=== PATIENT | male | born 1985 | race Caucasian/White ===

== ENCOUNTER 2025-05-03 16:53 | Emergency (ER) | payer MEDICAID, SELFPAY ==
[2025-05-03 17:01] VITALS: BP 123/87; PULSE 74; RESP 18; TEMP 36.7; O2SAT 95
[2025-05-03] MEDS: clonazePAM 0.5 MG TABLET 2 MG PO (17:18)
--- NOTE | 2025-05-03 17:22 | PD.EDADULT ---
ED General RME/HPI General Chief complaint: General Adult/Misc Complain Stated complaint: panic attack (lost kolonopin 72 hours ago) Time Seen by Provider: 05/03/25 17:10 Arrival date/time: 05/03/25 16:53 40-year-old male with history of anxiety, panic attacks presents stating that he lost his Klonopin 72 hours ago patient questing a dose of Klonopin now reports he will follow-up with the specialist but just needs something for right now. Limitations: no limitations Related Data Home Medications ?Medication ?Instructions ?Recorded ?Confirmed clonazepam 2 mg tablet (Klonopin) 2 mg PO QDAY 09/09/19 09/09/19 escitalopram oxalate 10 mg tablet 10 mg PO QDAY 09/09/19 09/09/19 (Lexapro) lisinopril 20 1 tab PO QDAY 09/09/19 09/09/19 mg-hydrochlorothiazide 12.5 mg tablet lurasidone 20 mg tablet (Latuda) 20 mg PO QDAY 09/09/19 09/09/19 metoprolol succinate 50 mg capsule 50 mg PO QDAY 09/09/19 09/09/19 sprinkle, ext. release 24 hr Previous Rx's ?Medication ?Instructions ?Recorded lurasidone 40 mg tablet (Latuda) 40 mg PO QPM #7 tabs 06/13/24 clonazepam 2 mg tablet 2 mg PO QDAY 5 days #5 tabs 05/03/25 Allergies Allergy/AdvReac Type Severity Reaction Status Date / Time No Known Allergies Allergy Verified 05/03/25 16:56 Review of Systems Review of Systems Systems Reviewed: All systems reviewed, normal except as documented Constitutional Constitutional: Reports system reviewed and no additional complaints, except as documented, Denies fever(s) and Denies headache(s) Eyes Eyes: Reports system reviewed and no additional complaints, except as documented and Denies blurry vision ENT Ears, Nose, Mouth, and Throat: Reports system reviewed and no additional complaints, except as documented, Denies headache(s), Denies nasal congestion and Denies nasal discharge Cardiovascular Cardiovascular: Reports system reviewed and no additional complaints, except as documented, Denies chest pain and Denies dyspnea Respiratory Respiratory: Reports system reviewed and no additional complaints, except as documented, Denies chest congestion, Denies cough and Denies dyspnea Gastrointestinal Gastrointestinal: Reports system reviewed and no additional complaints, except as documented and Denies abdominal pain Integumentary/Breasts Skin/Breast: Reports system reviewed and no additional complaints, except as documented and Denies rash Neurologic Neurologic: Reports system reviewed and no additional complaints, except as documented, Reports as per HPI and Denies headache(s) Past Medical History Past Medical History CARDIAC: Negative Congestive Heart Failure RESPIRATORY: Negative Chronic Obstructive Pulmonary Disease (COPD) GENITOURINARY: Negative Renal Disease ENDOCRINE: Negative Diabetes Mellitus Type 1 or Diabetes Mellitus Type 2 Social History SMOKING STATUS: Never smoker ED Exam General Limitations: Present no limitations General appearance: Present alert and in no apparent distress Head Head exam: Present atraumatic Eye Eye exam: Present normal appearance, PERRL and EOMI ENT ENT exam: Present normal exam, normal oropharynx and mucous membranes moist Neck Neck exam: Present normal inspection, full ROM and trachea midline Chest Chest inspection: Present normal inspection and symmetric chest wall rise Respiratory Respiratory exam: Present normal lung sounds bilaterally Cardiovascular Cardiovascular exam: Present regular rate, normal rhythm and normal heart sounds Abdominal Exam Abdominal exam: Present soft and normal bowel sounds Extremities Exam Extremities exam: Present normal inspection and full ROM Back Exam Back exam: Present normal inspection and full ROM Neurological Exam Neurological exam: Present alert, oriented X3, CN II-XII intact, normal gait and reflexes normal; Absent motor sensory deficit Psychiatric Psychiatric exam: Present anxious; Absent depressed, agitated, flat affect, manic, homicidal ideation or suicidal ideation Skin Skin exam: Present warm, dry, intact and normal color Course Quality Measures none Orders Category Date Time Status clonazePAM [KlonoPIN] Med 05/03/25 17:13 Discontinued 2 mg PO X1 ONE Vital Signs Vital signs: Vital Signs Temperature 98.1 F 05/03/25 17:01 Pulse Rate 74 05/03/25 17:01 Respiratory Rate 18 05/03/25 17:01 Blood Pressure 123/87 H 05/03/25 17:01 Pulse Oximetry (%) 95 05/03/25 17:01 Oxygen Delivery Method Room Air 05/03/25 17:01 O2 saturation 95% room air wnl Discharge Plan Plan Patient Disposition: HOME (Self Care) Discharge Disposition comment: Stable Prescriptions/Referrals Prescriptions/Med Rec: New clonazepam 2 mg tablet 2 mg PO QDAY 5 Days Qty: 5 0RF No Action metoprolol succinate 50 mg capsule,sprinkle,ER 24hr 50 mg PO QDAY lisinopril-hydrochlorothiazide 20-12.5 mg tablet 1 tab PO QDAY clonazepam [Klonopin] 2 mg tablet 2 mg PO QDAY Latuda 20 mg tablet 20 mg PO QDAY escitalopram oxalate [Lexapro] 10 mg tablet 10 mg PO QDAY lurasidone [Latuda] 40 mg tablet 40 mg PO QPM Qty: 7 0RF Rx Instructions: must administer with food (at least 350 calories) Problem List Clinical Impression: Anxiety, Medication refill Patient/Caregiver Discharge Instructions Education Materials: ED Anxiety Reaction Additional Instructions: Please follow up with your primary care doctor in the next 24-48hrs for any worsening symptoms return here immediately Print Language: Panamanian Stand Alone Forms: Nata Award Info., Patient Portal Info Letter 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 On exam patient well-appearing patient does not appear ill or toxic in no acute distress Patient given a single dose of Klonopin here and discharged home with a short course of Klonopin Patient discharged home in no distress to follow-up with primary care doctor in the next 24 to 48 hours and for any worsening symptoms to return to the ER immediately Clinical Information Provided by patient Medical Records Reviewed [facility] Meds/Rx Considered, not Ordered Describe details: Given Labs/Rad/Tests considered, not Ordered None Chronic Illness/Social Conditions which may negatively complicate care or outcome(s)-explain: None or not applicable EKG EKG not done Lab Interpretation Labs: none Imaging Imaging interpretation: none Medication Administration(s) none Medication Administration History Discontinued Medications Clonazepam (Clonazepam 0.5 Mg Tablet) 2 mg PO X1 ONE Stop: 05/03/25 17:14 Last Admin: 05/03/25 17:18 Dose: 2 mg Documented By: KRISTIN Given Diagnosis Differential diagnosis: Psychiatric disorder, bipolar, schizophrenia Dispositon Disposition: Discharge Home
== END 2025-05-03 17:24 | disposition home or self-care (01) ==
LOC: SERX 17:15
PROVIDERS: Emergency Provider Emergency Medicine; PCP Nurse Practitioner Family
DX: F41.9 Anxiety disorder, unspecified (principal); Z76.0 Encounter for issue of repeat prescription
CPT/HCPCS: 99282; A9270

== ENCOUNTER 2025-06-11 09:58 | Emergency (ER) | payer MEDICAID, SELFPAY ==
--- NOTE | 2025-06-11 10:15 | PC.NURSE ---
PT CALLED BACK TO E AT 1014 X1. NO RESPONSE FROM OUTSIDE OR FROM LOBBY.
[2025-06-11 10:33] VITALS: BP 136/87; PULSE 87; RESP 18; TEMP 36.4; O2SAT 95; BMI 35.4
--- NOTE | 2025-06-11 10:48 | PD.EDANKLE ---
Lower Extremity Injury RME/HPI General Chief Complaint: General Adult/Misc Complain Stated Complaint: 4TH DAY CLONAZEPAM WITHDRAWL Time Seen by Provider: 06/11/25 10:01 Arrival date/time: 06/11/25 09:58 This is a 40-year-old male that comes into the emergency room with complaints of no clonazepam for the last 4 days. Patient states that his insurance ran out. Patient has not been able to see his doctor. Patient was paying [facility] to see his doctor to get his prescriptions but not able to make a follow-up appointment with them. Patient also has some redness to his right lower extremities. Patient has a long history of anxiety Related Data Home Medications ?Medication ?Instructions ?Recorded ?Confirmed clonazepam 2 mg tablet (Klonopin) 2 mg PO QDAY 09/09/19 09/09/19 escitalopram oxalate 10 mg tablet 10 mg PO QDAY 09/09/19 09/09/19 (Lexapro) lisinopril 20 1 tab PO QDAY 09/09/19 09/09/19 mg-hydrochlorothiazide 12.5 mg tablet lurasidone 20 mg tablet (Latuda) 20 mg PO QDAY 09/09/19 09/09/19 metoprolol succinate 50 mg capsule 50 mg PO QDAY 09/09/19 09/09/19 sprinkle, ext. release 24 hr Previous Rx's ?Medication ?Instructions ?Recorded lurasidone 40 mg tablet (Latuda) 40 mg PO QPM #7 tabs 06/13/24 clonazepam 2 mg tablet 2 mg PO QDAY #7 tabs 06/13/25 clonazepam 1 mg tablet (Klonopin) 1 mg PO QDAY PRN anxiety #14 tabs 06/23/25 Allergies Allergy/AdvReac Type Severity Reaction Status Date / Time No Known Allergies Allergy Verified 06/23/25 17:41 Review of Systems Review of Systems Systems Reviewed: All systems reviewed, normal except as documented Past Medical History Past Medical History CARDIAC: Negative Congestive Heart Failure RESPIRATORY: Negative Chronic Obstructive Pulmonary Disease (COPD) GENITOURINARY: Negative Renal Disease ENDOCRINE: Negative Diabetes Mellitus Type 1 or Diabetes Mellitus Type 2 Social History SMOKING STATUS: Never smoker ED Exam Narrative Physical exam: VITAL SIGNS: Reviewed. GENERAL APPEARANCE: Alert and interactive, follows commands, no acute distress HEAD AND FACE: Non-traumatic. ENT: PERRL, conjuctiva pink and clear, eyelid no trauma, Mucous membrane moist. NECK: Supple, nontender, no nuchal rigidity. CHEST: No tenderness, no crepitus, no paradoxical movement, no retractions. LUNGS: breathing even and unlabored HEART: Regular rate, cap refill less than 2 seconds ABDOMEN: Soft, nondistended, no guarding, nontender, no rebound, no masses, NEUROLOGICAL: Gross motor function intact sensory function intact, Appropriate for age. MUSCULOSKELETAL: low back nontender, full range of motion. EXTREMITIES: No redness no swelling no skin breakdown on bilateral foot and leg. Distal neurovascular status intact bilateral foot SKIN: Color pink, dry, bronzing to his lower extremities that is consistent likely venous stasis. His right lower extremity has some erythema and induration to the lower part of his leg. Course Quality Measures none Orders Category Date Time Status cephALEXin [Keflex] Med 06/11/25 10:49 Discontinued 500 mg PO X1 ONE clonazePAM [KlonoPIN] Med 06/11/25 10:49 Discontinued 2 mg PO X1 ONE Vital Signs Vital signs: Vital Signs Temperature 97.6 F 06/11/25 10:33 Pulse Rate 87 06/11/25 10:33 Respiratory Rate 18 06/11/25 10:33 Blood Pressure 136/87 H 06/11/25 10:33 Pulse Oximetry (%) 95 06/11/25 10:33 Oxygen Delivery Method Room Air 06/11/25 10:33 Extremity Injury, Lower MDM Narrative MDM Narrative:: I spoke to patient at length. Patient does have history of anxiety depression and is getting Remeron for this. Patient states that he is going to try next week to see his primary doctor to get a refill on his clonazepam. I let patient know that I cannot give him a prescription of clonazepam that this will have to be done by his primary doctor. However I will give him a dose of clonazepam here. I told patient to make sure he follows up with his primary provider in 1 to 2 days. Patient has some chronic bronzing to his lower extremities that is consistent with venous stasis. His right lower extremity has some erythema and induration to the lower part of his leg. This can be an early cellulitis. Will treat. Patient told to follow-up with primary provider in 1 to 2 days. Come back to the emergency room if symptoms change or worsen. Patient data External records reviewed:: [facility] previous records Clinical information provided by:: patient Social determinants that could affect healthcare access:: none Patient has the following chronic illnesses:: see hpi How is presenting disease/condition affected by chronic disease/condition?: no chronic disease Evaluation data The following diagnostics were reviewed and interpreted by me:: other (specify) (none ) Lab and/or radiology exams considered but not ordered:: none Interpretation Summary: see note Medications / Prescriptions Medications or Prescriptions considered but not ordered:: none Medication administrations:: Medication Administration History Discontinued Medications Cephalexin HCl (Cephalexin 250 Mg Capsule) 500 mg PO X1 ONE Stop: 06/11/25 10:50 Last Admin: 06/11/25 11:09 Dose: 500 mg Documented By: Clonazepam (Clonazepam 0.5 Mg Tablet) 2 mg PO X1 ONE Stop: 06/11/25 10:50 Last Admin: 06/11/25 11:09 Dose: 2 mg Documented By: see mar Consultations Consultation(s) initiated? (list below): No Diagnosis Most likely diagnosis given after review of the tests above:: medication withdrawal and celliulitis Admission Indicated Admission indicated?: not indicated Admission Request Was there a request for admission?: No Disposition Plan Disposition Plan: Discharge Discharge Attestation Discharge Attestation: The patient and all family members were given an opportunity to ask questions and understood the discharge instructions. Discharge instructions specifically effects, indications for sooner follow up or return to the emergency department, and the expected course of current diagnosis. Patient condition: Stable Discharge Plan Plan Patient Disposition: HOME (Self Care) Patient condition on transfer: Stable Prescriptions/Referrals Prescriptions/Med Rec: No Action metoprolol succinate 50 mg capsule,raúl,ER 24hr 50 mg PO QDAY lisinopril-hydrochlorothiazide 20-12.5 mg tablet 1 tab PO QDAY clonazepam [Klonopin] 2 mg tablet 2 mg PO QDAY Latuda 20 mg tablet 20 mg PO QDAY escitalopram oxalate [Lexapro] 10 mg tablet 10 mg PO QDAY lurasidone [Latuda] 40 mg tablet 40 mg PO QPM Qty: 7 0RF Rx Instructions: must administer with food (at least 350 calories) clonazepam [Klonopin] 1 mg tablet 1 mg PO QDAY PRN (Reason: anxiety) Qty: 14 0RF clonazepam 2 mg tablet 2 mg PO QDAY Qty: 7 0RF Problem List Clinical Impression: Cellulitis, Anxiety Patient/Caregiver Discharge Instructions Discharge Activity: activity as tolerated Education Materials: ED Anxiety Reaction, ED Cellulitis Additional Instructions: Follow up with primary provider in 1-2 days. Come back to ED if symptoms change or worsen Print Language: Maori Stand Alone Forms: Nata Award Info., Patient Portal Info Letter PA/ONLINE PROJECT MANAGER Supervising Physician PA/ONLINE PROJECT MANAGER Supervising Physician: rafy
== END 2025-06-11 11:27 | disposition home or self-care (01) ==
PROVIDERS: Emergency Provider Nurse Practitioner Family; PCP Family Medicine
DX: L03.115 Cellulitis of right lower limb (principal); F41.9 Anxiety disorder, unspecified
CPT/HCPCS: 99283; A9270

== ENCOUNTER 2025-06-13 18:04 | Emergency (ER) | payer MEDICAID, SELFPAY ==
[2025-06-13 18:05] VITALS: BMI 34.4
[2025-06-13 18:57] VITALS: BP 132/85; PULSE 78; RESP 18; TEMP 36.7; O2SAT 97
--- NOTE | 2025-06-13 19:08 | PD.EDRECHK ---
ED Recheck Abnl Lab Rx-RME/HPI General Chief Complaint: General Adult/Misc Complain Stated Complaint: CLONOPINE WITHDRAWL Time Seen by Provider: 06/13/25 19:06 Arrival date/time: 06/13/25 18:04 40M with history of psych and HTN presents to ED needing clonazepam refill due to withdrawal symptoms. Patient is in-between appointments. His next one is one 1 week from today. Patient has been on 2 mg QD for the past 10 years. Patient denies HI/SI. Limitations: no limitations Related Data Home Medications ?Medication ?Instructions ?Recorded ?Confirmed clonazepam 2 mg tablet (Klonopin) 2 mg PO QDAY 09/09/19 09/09/19 escitalopram oxalate 10 mg tablet 10 mg PO QDAY 09/09/19 09/09/19 (Lexapro) lisinopril 20 1 tab PO QDAY 09/09/19 09/09/19 mg-hydrochlorothiazide 12.5 mg tablet lurasidone 20 mg tablet (Latuda) 20 mg PO QDAY 09/09/19 09/09/19 metoprolol succinate 50 mg capsule 50 mg PO QDAY 09/09/19 09/09/19 sprinkle, ext. release 24 hr Previous Rx's ?Medication ?Instructions ?Recorded lurasidone 40 mg tablet (Latuda) 40 mg PO QPM #7 tabs 06/13/24 cephalexin 500 mg capsule 500 mg PO QID 7 days #28 caps 06/11/25 clonazepam 2 mg tablet 2 mg PO QDAY #7 tabs 06/13/25 Allergies Allergy/AdvReac Type Severity Reaction Status Date / Time No Known Allergies Allergy Verified 06/13/25 18:06 Review of Systems Review of Systems Systems Reviewed: All systems reviewed, normal except as documented Constitutional Constitutional: Reports system reviewed and no additional complaints, except as documented, Denies fever(s) and Denies headache(s) ENT Ears, Nose, Mouth, and Throat: Denies disequilibrium and Denies headache(s) Cardiovascular Cardiovascular: Reports system reviewed and no additional complaints, except as documented, Denies chest pain and Denies dyspnea Respiratory Respiratory: Reports system reviewed and no additional complaints, except as documented, Denies cough and Denies dyspnea Gastrointestinal Gastrointestinal: Reports system reviewed and no additional complaints, except as documented, Denies abdominal pain, Denies nausea and Denies vomiting Neurologic Neurologic: Reports system reviewed and no additional complaints, except as documented, Denies confusion, Denies disequilibrium and Denies headache(s) Psychiatric Psychiatric: Denies confusion Past Medical History Past Medical History CARDIAC: Negative Congestive Heart Failure RESPIRATORY: Negative Chronic Obstructive Pulmonary Disease (COPD) GENITOURINARY: Negative Renal Disease ENDOCRINE: Negative Diabetes Mellitus Type 1 or Diabetes Mellitus Type 2 Social History SMOKING STATUS: Never smoker ED Exam General Limitations: Present no limitations General appearance: Present alert and in no apparent distress Head Head exam: Present atraumatic Eye Eye exam: Present normal appearance, PERRL and EOMI ENT ENT exam: Present normal exam, normal oropharynx and mucous membranes moist Neck Neck exam: Present normal inspection, full ROM and trachea midline Chest Chest inspection: Present normal inspection and symmetric chest wall rise Respiratory Respiratory exam: Present normal lung sounds bilaterally Cardiovascular Cardiovascular exam: Present regular rate, normal rhythm and normal heart sounds Abdominal Exam Abdominal exam: Present soft and normal bowel sounds Extremities Exam Extremities exam: Present normal inspection and full ROM Back Exam Back exam: Present normal inspection and full ROM Neurological Exam Neurological exam: Present alert, oriented X3 and CN II-XII intact Psychiatric Psychiatric exam: Present normal affect and normal mood Skin Skin exam: Present warm, dry, intact and normal color Course Quality Measures none Orders Category Date Time Status clonazePAM [KlonoPIN] Med 06/13/25 19:07 Discontinued 2 mg PO X1 ONE Vital Signs Vital signs: Vital Signs Temperature 98.1 F 06/13/25 18:57 Pulse Rate 78 06/13/25 18:57 Respiratory Rate 18 06/13/25 18:57 Blood Pressure 132/85 H 06/13/25 18:57 Pulse Oximetry (%) 97 06/13/25 18:57 Oxygen Delivery Method Room Air 06/13/25 18:57 O2 at 97% on RA and WNLs Recheck / Abnormal Lab / Rx MDM Narrative MDM Narrative:: 40M with history of psych and HTN presents to ED needing clonazepam refill due to withdrawal symptoms. Patient is in-between appointments. His next one is one 1 week from today. Patient has been on 2 mg QD for the past 10 years. Patient denies HI/SI. Physical exam reveals well-appearing male. Patient is afebrile, calm, and alert. Meds and residential youth counselor given. Patient data External records reviewed:: [facility] previous records Clinical information provided by:: patient Social determinants that could affect healthcare access:: mental health Patient has the following chronic illnesses:: psych and HTN How is presenting disease/condition affected by chronic disease/condition?: caused by Evaluation data The following diagnostics were reviewed and interpreted by me:: other (specify) (none) Lab and/or radiology exams considered but not ordered:: not ordered Interpretation Summary: n/a Medications / Prescriptions Medications or Prescriptions considered but not ordered:: ordered Medication administrations:: Medication Administration History Discontinued Medications Clonazepam (Clonazepam 0.5 Mg Tablet) 2 mg PO X1 ONE Stop: 06/13/25 19:08 above Consultations Consultation(s) initiated? (list below): No Diagnosis Recheck Differential Diagnosis: encounter for medication refill, encounter for wound recheck, encounter for recheck of burn, encounter for removal of sutures and warfarin-induced coagulopathy Most likely diagnosis given after review of the tests above:: encounter for medication refill Admission Indicated Admission indicated?: not indicated Admission Request Was there a request for admission?: No Disposition Plan Disposition Plan: Discharge Discharge Attestation Discharge Attestation: The patient and all family members were given an opportunity to ask questions and understood the discharge instructions. Discharge instructions specifically effects, indications for sooner follow up or return to the emergency department, and the expected course of current diagnosis. Patient condition: Stable Discharge Plan Plan Patient Disposition: HOME (Self Care) Discharge Disposition comment: Stable Prescriptions/Referrals Prescriptions/Med Rec: New clonazepam 2 mg tablet 2 mg PO QDAY Qty: 7 0RF No Action metoprolol succinate 50 mg capsule,sprinkle,ER 24hr 50 mg PO QDAY lisinopril-hydrochlorothiazide 20-12.5 mg tablet 1 tab PO QDAY clonazepam [Klonopin] 2 mg tablet 2 mg PO QDAY Latuda 20 mg tablet 20 mg PO QDAY escitalopram oxalate [Lexapro] 10 mg tablet 10 mg PO QDAY lurasidone [Latuda] 40 mg tablet 40 mg PO QPM Qty: 7 0RF Rx Instructions: must administer with food (at least 350 calories) cephalexin 500 mg capsule 500 mg PO QID 7 Days Qty: 28 0RF Problem List Clinical Impression: Encounter for medication refill Patient/Caregiver Discharge Instructions Additional Instructions: Please follow-up with PCP within 24-48 hours and return immediately if symptoms worsen. 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 Cline
== END 2025-06-13 19:22 | disposition home or self-care (01) ==
LOC: SERX 19:14
PROVIDERS: Emergency Provider Emergency Medicine; PCP Nurse Practitioner Family
DX: Z76.0 Encounter for issue of repeat prescription (principal); I10 Essential (primary) hypertension
CPT/HCPCS: 99283; A9270

== ENCOUNTER 2025-06-23 17:37 | Emergency (ER) | payer MEDICAID, SELFPAY ==
[2025-06-23 17:44] VITALS: BP 137/87; PULSE 80; RESP 18; TEMP 36.5; O2SAT 96; BMI 35.5
--- NOTE | 2025-06-23 18:01 | PD.EDADULT ---
ED General RME/HPI General Chief complaint: General Adult/Misc Complain Stated complaint: needs Klonopin in between M.D.'s Time Seen by Provider: 06/23/25 17:51 Arrival date/time: 06/23/25 17:37 RME / HPI RME / HPI narrative: 40-year-old male patient with significant history of hypertension, anxiety, taking clonazepam, 1 mg daily, came in for evaluation regarding anxiety like symptoms. Patient told me that the last time he took clonazepam was 2 days ago. No he felt very anxious. Patient told me that he had problem with insurance that is why he ran out of clonazepam. Patient denies any homicidal suicidal ideation patient is ambulatory. Related Data Home Medications ?Medication ?Instructions ?Recorded ?Confirmed clonazepam 2 mg tablet (Klonopin) 2 mg PO QDAY 09/09/19 09/09/19 escitalopram oxalate 10 mg tablet 10 mg PO QDAY 09/09/19 09/09/19 (Lexapro) lisinopril 20 1 tab PO QDAY 09/09/19 09/09/19 mg-hydrochlorothiazide 12.5 mg tablet lurasidone 20 mg tablet (Latuda) 20 mg PO QDAY 09/09/19 09/09/19 metoprolol succinate 50 mg capsule 50 mg PO QDAY 09/09/19 09/09/19 sprinkle, ext. release 24 hr Previous Rx's ?Medication ?Instructions ?Recorded lurasidone 40 mg tablet (Latuda) 40 mg PO QPM #7 tabs 06/13/24 clonazepam 2 mg tablet 2 mg PO QDAY #7 tabs 06/13/25 clonazepam 1 mg tablet (Klonopin) 1 mg PO QDAY PRN anxiety #14 tabs 06/23/25 Allergies Allergy/AdvReac Type Severity Reaction Status Date / Time No Known Allergies Allergy Verified 06/23/25 17:41 Review of Systems Review of Systems Narrative Review of Systems: Review of system reviewed and within normal limits except mentioned in HPI ED Exam Narrative Physical exam: VITAL SIGNS: Reviewed. GENERAL APPEARANCE: Alert and interactive, follows commands, no acute distress, anxious HEAD AND FACE: Non-traumatic. ENT: PERRL, pink conjunctivitis, eyelid no trauma, Mucous membrane moist. NECK: Supple, nontender, no nuchal rigidity. CHEST: No tenderness, no crepitus, no paradoxical movement, no retractions. LUNGS: Clear, well ventilated, symmetric, no rales, no wheezing, no ronchi, no stridor, good breath sounds bilaterally. HEART: Regular rate, regular rhythm, no murmur, no gallops. ABDOMEN: Soft, positive bowel sounds, nondistended, no guarding, nontender, no rebound, no masses, RECTAL: Deferred. GENITAL: Deferred. NEUROLOGICAL: Gross motor function intact sensory function intact, Appropriate for age. MUSCULOSKELETAL: low back nontender, full range of motion. EXTREMITIES: Nontender, full range of motion. SKIN: Color pink, dry, no rash, no lacerations, no abrasions, no contusions. LYMPHATICS: Deferred. Course Quality Measures none Orders Category Date Time Status clonazePAM [KlonoPIN] Med 06/23/25 18:00 Once 1 mg PO X1 ONE Vital Signs Vital signs: Vital Signs Temperature 97.7 F 06/23/25 17:44 Pulse Rate 80 06/23/25 17:44 Respiratory Rate 18 06/23/25 17:44 Blood Pressure 137/87 H 06/23/25 17:44 Pulse Oximetry (%) 96 06/23/25 17:44 Oxygen Delivery Method Room Air 06/23/25 17:44 Discharge Plan Plan Patient Disposition: HOME (Self Care) Prescriptions/Referrals Prescriptions/Med Rec: New clonazepam [Klonopin] 1 mg tablet 1 mg PO QDAY PRN (Reason: anxiety) Qty: 14 0RF No Action metoprolol succinate 50 mg capsule,sprinkle,ER 24hr 50 mg PO QDAY lisinopril-hydrochlorothiazide 20-12.5 mg tablet 1 tab PO QDAY clonazepam [Klonopin] 2 mg tablet 2 mg PO QDAY Latuda 20 mg tablet 20 mg PO QDAY escitalopram oxalate [Lexapro] 10 mg tablet 10 mg PO QDAY lurasidone [Latuda] 40 mg tablet 40 mg PO QPM Qty: 7 0RF Rx Instructions: must administer with food (at least 350 calories) clonazepam 2 mg tablet 2 mg PO QDAY Qty: 7 0RF Problem List Clinical Impression: Anxiety Patient/Caregiver Discharge Instructions Discharge Activity: activity as tolerated Education Materials: ED Anxiety Reaction Additional Instructions: Thank you for the opportunity for serving you today. You are stable for discharged . You are advised to: Follow-up with your PCP in 1 to 2 days Return to ED for worsening of symptoms Increase oral fluids Take medication as prescribed Print Language: Uzbek Stand Alone Forms: N[employer] Award Info., Patient Portal Info Letter BISHNU/SHAYNA Supervising Physician NAHOMY Supervising Physician: MD Bharath [facility] Narrative [facility] hospital course: 40-year-old male patient with significant history of hypertension, anxiety, taking clonazepam, 1 mg daily, came in for evaluation regarding anxiety like symptoms. Patient told me that the last time he took clonazepam was 2 days ago. No he felt very anxious. Patient told me that he had problem with insurance that is why he ran out of clonazepam. Patient denies any homicidal suicidal ideation patient is ambulatory. Workup for imaging is not needed at this time. Patient received clonazepam 1 mg p.o. x 1 with significant improvement of symptoms. Patient will be prescribed clonazepam 1 mg times 10 tablets. Chronic Illness/Social Conditions Add or document further as needed: Hypertension anxiety Lab Interpretation Lab(s) interpretation(s): None Medication Administration(s) Medication Administration History Clonazepam (Clonazepam 0.5 Mg Tablet) 1 mg PO X1 ONE Stop: 06/23/25 18:01 Clonazepam Diagnosis Differential diagnosis: Anxiety, benzo withdrawal, panic attack Most likely dx, and/or detailed dx discussion: Although pt's initial presentation was concerning, Pt now reports feeling better after Ativan and has an unremarkable vital signs. Stable for D/C. Hydroxyzine given as needed Dispositon Disposition: Discharge Home
== END 2025-06-23 18:51 | disposition home or self-care (01) ==
PROVIDERS: Emergency Provider Emergency Medicine
DX: F41.9 Anxiety disorder, unspecified (principal)
CPT/HCPCS: 99282; A9270

== ENCOUNTER 2025-07-06 18:55 | Emergency (ER) | payer BC, SELFPAY ==
[2025-07-06 19:34] VITALS: BP 111/81; PULSE 78; RESP 20; TEMP 36.9; O2SAT 96; BMI 34.5
--- NOTE | 2025-07-06 19:41 | EDNOTE_ITS ---
ED Anxiety RME/HPI General Chief Complaint: General Adult/Misc Complain Stated Complaint: needs Klonopin dose Time Seen by Provider: 07/06/25 19:30 Arrival date/time: 07/06/25 18:55 RME / HPI RME / HPI narrative: This section includes all my notes and documentations, including HPI, PE, and ED course. Coy Cline MD HPI: 40 y/o male with Hx of Anxiety presents with anxiety and shaking after not having his medication for several days. Patient has been taking Klonopin daily to manage his anxiety for the last decade, but recently ran out of his medication, several days ago. No other complaints. ROS: All negative except as documented in HPI. Physical Exam: General: Alert and oriented. Appears very anxious. Eyes: Conjunctivae and lids clear. ENT: No nasal congestion. Neck: Supple. Heart: RRR. Lungs: No respiratory distress. Good air movement. No rhonchi, wheezing, rales. Skin: Warm and dry. Neuro: Alert and oriented X 3. At this point, diagnoses include: Anxiety. Treatment here included: Klonopin 2 mg. Recommended outpatient care. Based on my best medical judgment, made decision no further evaluation or treatment indicated at this time. Patient understands and agrees to the discharge instructions customized and printed, see below. Discharge Instructions from Dr. Cline printed for you: 1. To prevent severe benzodiazepine withdrawal, you were given Klonopin 2 mg here and a prescription for 48 hours. 2. See a private doctor on 07/07/2025 as scheduled. Ask to help slowly wean off of Klonopin without withdrawal. And help finding other ways of helping her anxiety. 3. Seek immediate medical care with worsening or with any concerns. Coy Cline MD Related Data Home Medications ?Medication ?Instructions ?Recorded ?Confirmed clonazepam 2 mg tablet (Klonopin) 2 mg PO QDAY 9 09/09/19 escitalopram oxalate 10 mg tablet 10 mg PO QDAY 09/09/19 (Lexapro) lisinopril 20 1 tab PO QDAY 09/09/1909/09 mg-hydrochlorothiazide 12.5 mg tablet lurasidone 20 mg tablet (Latuda) 20 mg PO QDAY 9 09/09/19 metoprolol succinate 50 mg capsule 50 mg PO QDAY 09/0909/09/19 sprinkle, ext. release 24 hr Previous Rx's ?Medication ?Instructions ?Recorded lurasidone 40 mg tablet (Latuda) 40 mg PO QPM #7 tabs 06/13/24 clonazepam 2 mg tablet 2 mg PO QDAY #7 tabs 5 clonazepam 1 mg tablet (Klonopin) 1 mg PO QDAY PRN anx iety #14 tabs 06/23/25 clonazepam 1 mg tablet (Klonopin) 1 mg PO BID PRN anxi ety #4 tabs 07/06/25 Allergies Allergy/AdvReac Type Severity Reaction Status Date / Time No Known Allergies Allergy Verified 07/06/25 18:58 Review of Systems Review of Systems Systems Reviewed: All systems reviewed, normal except as documented Past Medical History Past Medical History PSYCHO/SOCIAL: Positive Anxiety ED Exam Narrative Physical exam: Refer to [facility] Course Quality Measures none Orders Category Date Time Status clonazePAM [KlonoPIN] Med 07/06/25 19:27 Discontinued 2 mg PO X1 ONE Vital Signs Vital signs: Vital Signs Temperature 98.5 F 07/06/25 19:34 Pulse Rate 78 07/06/25 19:34 Respiratory Rate 20 07/06/25 19:34 Blood Pressure 111/81 07/06/25 19:34 Pulse Oximetry (%) 96 07/06/25 19:34 Oxygen Delivery Method Room Air 07/06/25 19:34 Anxiety MDM Narrative MDM Narrative: Scribe Attestation: Annabel Oliveira am scribing for and in the presence of Dr. Cline. Provider Notation: Although this document has been carefully reviewed, there may still be some phonetic and other typographical errors.? These errors are purely grammatical due to imperfections in the software program and should not be construed in any way to? compromise the substance of the patient's medical care during this visit. 40 y/o male with Hx of Anxiety presents with anxiety and shaking after not having his medication for several days. Patient has been taking Klonopin daily to manage his anxiety for the last decade, but recently ran out of his medication, several days ago. No other complaints. Patient data External records reviewed:: [facility] previous records (Reviewed prior ED records from 06/23/25. Patient was seen for Anxiety.) Clinical information provided by:: patient Social determinants that could affect healthcare access:: mental health (Anxiety) Patient has the following chronic illnesses:: Anxiety How is presenting disease/condition affected by chronic disease/condition?: exacerbated by Evaluation data The following diagnostics were reviewed and interpreted by me:: other (specify) (N/A) Lab and/or radiology exams considered but not ordered:: None Interpretation Summary: N/A Medications / Prescriptions Medications or Prescriptions considered but not ordered:: None Medication administrations:: Medication Administration History Discontinued Medications Clonazepam (Clonazepam 0.5 Mg Tablet) 2 mg PO X1 ONE Stop: 07/06/25 19:28 Last Admin: 07/06/25 19:40 Dose: 2 mg Documented By: EE Consultations Consultation(s) initiated? (list below): No Diagnosis Differential diagnosis anxiety: hyperventilation, panic disorder and acute anxiety Most likely diagnosis given after review of the tests above:: Anxiety Admission Indicated Admission indicated?: not indicated Explain why admission is indicated or not indicated:: With significant improvement and no condition needing emergent intervention, there was no indication for admission. Admission Request Was there a request for admission?: No Disposition Plan Disposition Plan: Discharge Discharge Attestation Discharge Attestation: The patient and all family members were given an opportunity to ask questions and understood the discharge instructions. Discharge instructions specifically effects, indications for sooner follow up or return to the emergency department, and the expected course of current diagnosis. Patient condition: Stable Discharge Plan Plan Patient Disposition: HOME (Self Care) Prescriptions/Referrals Prescriptions/Med Rec: New clonazepam [Klonopin] 1 mg tablet 1 mg PO BID PRN (Reason: anxiety) Qty: 4 0RF No Action metoprolol succinate 50 mg capsule,sprinkle,ER 24hr 50 mg PO QDAY lisinopril-hydrochlorothiazide 20-12.5 mg tablet 1 tab PO QDAY clonazepam [Klonopin] 2 mg tablet 2 mg PO QDAY Latuda 20 mg tablet 20 mg PO QDAY escitalopram oxalate [Lexapro] 10 mg tablet 10 mg PO QDAY lurasidone [Latuda] 40 mg tablet 40 mg PO QPM Qty: 7 0RF Rx Instructions: must administer with food (at least 350 calories) clonazepam [Klonopin] 1 mg tablet 1 mg PO QDAY PRN (Reason: anxiety) Qty: 14 0RF clonazepam 2 mg tablet 2 mg PO QDAY Qty: 7 0RF Problem List Clinical Impression: Anxiety Patient/Caregiver Discharge Instructions Discharge Activity: activity as tolerated Education Materials: ED Anxiety Reaction Additional Instructions: Discharge Instructions from Dr. Cline printed for you: 1. To prevent severe benzodiazepine withdrawal, you were given Klonopin 2 mg here and a prescription for 48 hours. 2. See a private doctor on 07/07/2025 as scheduled. Ask to help slowly wean off of Klonopin without withdrawal. And help finding other ways of helping her anxiety. 3. Seek immediate medical care with worsening or with any concerns. Print Language: Yoruba Stand Alone Forms: [employer] Award Info., Patient Portal Info Letter
== END 2025-07-06 19:43 | disposition home or self-care (01) ==
LOC: SERX 19:47
PROVIDERS: Emergency Provider Emergency Medicine
DX: F41.9 Anxiety disorder, unspecified (principal)
CPT/HCPCS: 99282; A9270

== ENCOUNTER 2025-07-11 15:48 | Emergency (ER) | payer MEDICAID, SELFPAY ==
[2025-07-11 15:48] VITALS: BMI 34.5
[2025-07-11 16:05] VITALS: BP 145/100; PULSE 101; RESP 20; TEMP 36.9; O2SAT 95
--- NOTE | 2025-07-11 16:08 | PD.EDADULT ---
ED General RME/HPI General Chief complaint: General Adult/Misc Complain Stated complaint: BENZO WITHDRAWL Time Seen by Provider: 07/11/25 16:08 Arrival date/time: 07/11/25 15:48 40-year-old male presents emergency department today stating that he ran out of his clonazepam and would like a refill. Limitations: no limitations Related Data Home Medications ?Medication ?Instructions ?Recorded ?Confirmed clonazepam 2 mg tablet (Klonopin) 2 mg PO QDAY 09/09/19 09/09/19 escitalopram oxalate 10 mg tablet 10 mg PO QDAY 09/09/19 09/09/19 (Lexapro) lisinopril 20 1 tab PO QDAY 09/09/19 09/09/19 mg-hydrochlorothiazide 12.5 mg tablet lurasidone 20 mg tablet (Latuda) 20 mg PO QDAY 09/09/19 09/09/19 metoprolol succinate 50 mg capsule 50 mg PO QDAY 09/09/19 09/09/19 sprinkle, ext. release 24 hr Previous Rx's ?Medication ?Instructions ?Recorded lurasidone 40 mg tablet (Latuda) 40 mg PO QPM #7 tabs 06/13/24 clonazepam 2 mg tablet 2 mg PO QDAY #7 tabs 06/13/25 clonazepam 1 mg tablet (Klonopin) 1 mg PO QDAY PRN anxiety #14 tabs 06/23/25 clonazepam 1 mg tablet (Klonopin) 1 mg PO BID PRN anxiety #4 tabs 07/06/25 clonazepam 1 mg tablet 1 mg PO QDAY 7 days #7 tabs 07/11/25 Allergies Allergy/AdvReac Type Severity Reaction Status Date / Time No Known Allergies Allergy Verified 07/12/25 04:08 Review of Systems Review of Systems Systems Reviewed: All systems reviewed, normal except as documented Constitutional Constitutional: Reports system reviewed and no additional complaints, except as documented, Denies fever(s) and Denies headache(s) Eyes Eyes: Reports system reviewed and no additional complaints, except as documented and Denies blurry vision ENT Ears, Nose, Mouth, and Throat: Reports system reviewed and no additional complaints, except as documented, Denies headache(s), Denies nasal congestion and Denies nasal discharge Cardiovascular Cardiovascular: Reports system reviewed and no additional complaints, except as documented, Denies chest pain and Denies dyspnea Respiratory Respiratory: Reports system reviewed and no additional complaints, except as documented, Denies chest congestion, Denies cough and Denies dyspnea Gastrointestinal Gastrointestinal: Reports system reviewed and no additional complaints, except as documented and Denies abdominal pain Integumentary/Breasts Skin/Breast: Reports system reviewed and no additional complaints, except as documented and Denies rash Neurologic Neurologic: Reports system reviewed and no additional complaints, except as documented, Reports as per HPI and Denies headache(s) Psychiatric Psychiatric: Reports system reviewed and no additional complaints, except as documented and Reports anxiety Past Medical History Past Medical History CARDIAC: Negative Congestive Heart Failure RESPIRATORY: Negative Chronic Obstructive Pulmonary Disease (COPD) GENITOURINARY: Negative Renal Disease ENDOCRINE: Negative Diabetes Mellitus Type 1 or Diabetes Mellitus Type 2 PSYCHO/SOCIAL: Positive Anxiety Social History SMOKING STATUS: Never smoker ED Exam General Limitations: Present no limitations General appearance: Present alert and in no apparent distress Head Head exam: Present atraumatic Eye Eye exam: Present normal appearance, PERRL and EOMI ENT ENT exam: Present normal exam, normal oropharynx and mucous membranes moist Neck Neck exam: Present normal inspection, full ROM and trachea midline Chest Chest inspection: Present normal inspection and symmetric chest wall rise Respiratory Respiratory exam: Present normal lung sounds bilaterally Cardiovascular Cardiovascular exam: Present regular rate, normal rhythm and normal heart sounds Abdominal Exam Abdominal exam: Present soft and normal bowel sounds Extremities Exam Extremities exam: Present normal inspection and full ROM Back Exam Back exam: Present normal inspection and full ROM Neurological Exam Neurological exam: Present alert, oriented X3, CN II-XII intact, normal gait and reflexes normal; Absent motor sensory deficit Psychiatric Psychiatric exam: Present normal affect and normal mood Skin Skin exam: Present warm, dry, intact and normal color Course Quality Measures none Vital Signs Vital signs: Vital Signs Temperature 98.5 F 07/11/25 16:05 Pulse Rate 101 H 07/11/25 16:05 Respiratory Rate 20 07/11/25 16:05 Blood Pressure 145/100 H 07/11/25 16:05 Pulse Oximetry (%) 95 07/11/25 16:05 Oxygen Delivery Method Room Air 07/11/25 16:05 O2 saturation 95% room air within the limits Discharge Plan Plan Patient Disposition: HOME (Self Care) Discharge Disposition comment: Stable Prescriptions/Referrals Prescriptions/Med Rec: New clonazepam 1 mg tablet 1 mg PO QDAY 7 Days Qty: 7 0RF No Action metoprolol succinate 50 mg capsule,sprinkle,ER 24hr 50 mg PO QDAY lisinopril-hydrochlorothiazide 20-12.5 mg tablet 1 tab PO QDAY clonazepam [Klonopin] 2 mg tablet 2 mg PO QDAY Latuda 20 mg tablet 20 mg PO QDAY escitalopram oxalate [Lexapro] 10 mg tablet 10 mg PO QDAY lurasidone [Latuda] 40 mg tablet 40 mg PO QPM Qty: 7 0RF Rx Instructions: must administer with food (at least 350 calories) clonazepam [Klonopin] 1 mg tablet 1 mg PO QDAY PRN (Reason: anxiety) Qty: 14 0RF clonazepam [Klonopin] 1 mg tablet 1 mg PO BID PRN (Reason: anxiety) Qty: 4 0RF clonazepam 2 mg tablet 2 mg PO QDAY Qty: 7 0RF Problem List Clinical Impression: Anxiety Patient/Caregiver Discharge Instructions Education Materials: ED Anxiety Reaction Additional Instructions: Please keep your appointment on Thursday with your PCP for worsening symptoms return immediately Print Language: Belarusian Stand Alone Forms: N[employer] Award Info., Patient Portal Info Letter PA/MEDICAL RECORDS ASSISTANT Supervising Physician PA/MEDICAL RECORDS ASSISTANT Supervising Physician: Dr. Zhang WERNER Attestation MD Attestation The patient was seen by the midlevel practitioner. I, the co-signing physician, was present during the entire ER visit. While I did not physically examine the patient, I was available for consultation as needed. I agree with the plan and documentation. MDM Narrative [facility] hospital course: 40-year-old male presents emergency department today stating that he ran out of his clonazepam and would like a refill. On exam patient well-appearing patient does not appear ill or toxic no acute distress Patient reports no suicidal or homicidal ideations patient where she would just like a refill on some clonazepam and he has an appointment to follow-up with his PCP Patient discharged home in no distress to follow-up with primary care doctor in the next 24 to 48 hours and for any worsening symptoms to return to the ER immediately Clinical Information Provided by patient Medical Records Reviewed [facility] Meds/Rx Considered, not Ordered Describe details: Rx given Labs/Rad/Tests considered, not Ordered None Chronic Illness/Social Conditions which may negatively complicate care or outcome(s)-explain: None or not applicable and Mental health EKG EKG not done Lab Interpretation Labs: none Imaging Imaging interpretation: none Medication Administration(s) Rx given Diagnosis Differential diagnosis: Anxiety, depression, medication refill Differential dx and/or dx ruled out: Medication refill Most likely dx, and/or detailed dx discussion: Patient refill Dispositon Disposition: Discharge Home
== END 2025-07-11 17:04 | disposition home or self-care (01) ==
LOC: SERX 16:45
PROVIDERS: Emergency Provider Family Medicine
DX: F41.9 Anxiety disorder, unspecified (principal)
CPT/HCPCS: 99282

== ENCOUNTER 2025-07-12 04:07 | Emergency (ER) | payer MEDICAID, SELFPAY ==
[2025-07-12 04:09] VITALS: BMI 35.5
[2025-07-12 04:16] VITALS: BP 145/83; PULSE 80; RESP 18; TEMP 37.1; O2SAT 96
--- NOTE | 2025-07-12 04:43 | PC.NURSE ---
PT WAS PUT TO ROOM RME 1, SEEN BY SECURITY RUNNING AWAY FROM RME 1.
== END 2025-07-12 04:46 | disposition left against medical advice (07) ==
LOC: SERX 05:19
PROVIDERS: Emergency Provider Emergency Medicine
DX: Z53.29 Procedure and treatment not carried out because of patient's decision for other reasons (principal)
CPT/HCPCS: 99282